=== PATIENT | female | born 1990 ===

== ENCOUNTER 2021-02-03 19:28 | Emergency (ER) | payer OTHER ==
[~2021-02-03] VITALS: Ht 167.6 cm; Wt 132.0 kg
[~2021-02-03 19:28] MED LIST: ALPR.25; DIVA250EC; Verotin-Gr Cap1 EACH PO
[2021-02-03] MEDS ORDERED: CYCL10 PO (21:27)
[2021-02-03] MEDS ORDERED: LIDO700A20 TOP (21:27)
== END 2021-02-03 21:46 | disposition home or self-care (01) ==
LOC: ER 19:28
DX: S46.912A Strain of unspecified muscle, fascia and tendon at shoulder and upper arm level, left arm, initial encounter (principal); X58.XXXA Exposure to other specified factors, initial encounter
CPT/HCPCS: 73030; 96372; 99283-25; A9270; J1885

== ENCOUNTER → 2021-02-14 | Outpatient (CLI) | payer OTHER ==
[~2021-02-14] MED LIST changes: +CYCL10 PO; +LIDO700A20 TOP
== END | disposition home or self-care (01) ==
LOC: LAB 11:56 → LAB SHORT 11:56
DX: Z32.01 Encounter for pregnancy test, result positive (principal)
CPT/HCPCS: 87086

== ENCOUNTER 2021-10-25 20:16 | Inpatient (IN) | payer OTHER ==
[~2021-10-25] VITALS: Ht 170.2 cm; Wt 126.8 kg
[2021-10-25 21:33] LABS: BASOPHILS ABSOLUTE AUTO 0.03 K/mm3 (0.00-0.23); BASOPHILS PERCENT AUTO 0 % (0-2); EOSINOPHILS ABSOLUTE AUTO 0.09 K/mm3 (0.00-0.68); EOSINOPHILS PERCENT AUTO 1 % (0-6); Hematocrit 35.4 % (33.0-51.0); Hemoglobin 12.5 g/dL (11.5-16.0); IMMATURE GRAN ABSOLUTE AUTO 0.05 K/mm3 (0.00-0.10); IMMATURE GRAN PERCENT AUTO 1 % (0-1); LYMPHOCYTES ABSOLUTE AUTO 2.33 K/mm3 (0.84-5.20); LYMPHOCYTES PERCENT AUTO 22 % (21-46); MONOCYTES ABSOLUTE AUTO 0.65 K/mm3 (0.16-1.47); MONOCYTES PERCENT AUTO 6 % (4-13); Mean Corpuscular HGB Conc 35.3 g/dL (31.5-36.5); Mean Corpuscular Volume 88 fL (80-100); Mean Platelet Volume 10.3 fL (9.1-12.4); NEUTROPHILS ABSOLUTE AUTO 7.57 K/mm3 (1.96-9.15); NEUTROPHILS PERCENT AUTO 71 % (41-73); Platelet Count 308 K/mm3 (150-400); RDW Coefficient Variation 13.5 % (11.7-14.2); RDW Standard Deviation 43.8 fL (35.1-46.3); Red Blood Cell Count 4.03 M/mm3 (3.80-5.20); White Blood Cell Count 10.72 K/mm3 (4.00-11.30)
[2021-10-25 22:18] LABS: Influenza A, PCR NEGATIVE (NEGATIVE); Influenza B, PCR NEGATIVE (NEGATIVE); Resp Syncytial Virus, PCR NEGATIVE (NEGATIVE); SARS-Cov-2 (COVID-19) PCR, MMC NEGATIVE (NEGATIVE)
[2021-10-26] MEDS ORDERED: IBUP800 PO (07:45)
[2021-10-27 05:57] LABS: Hematocrit 33.2 % (33.0-51.0); Hemoglobin 11.3 g/dL (11.5-16.0); Mean Corpuscular HGB 30.8 pg (26.0-34.0); Mean Corpuscular Volume 91 fL (80-100); Mean Platelet Volume 10.2 fL (9.1-12.4); Platelet Count 236 K/mm3 (150-400); Red Blood Cell Count 3.67 M/mm3 (3.80-5.20); White Blood Cell Count 9.07 K/mm3 (4.00-11.30)
--- NOTE | 2021-10-27 11:20 | NUR ---
PT GIVEN [place] DEPRESSION SCALE TO FILL OUT WITH A RESULT OF 14. PROMPTED, Cecilia RHODES CNM CALLED AND NOTIFIED. PT RESULTS DISCUSSED WITH PT AND PROVIDER. T/O FOR HOLD OF DISCHARGE UNTIL [facility] CAN COME ASSESS PT. FENG FROM [facility] CONTACTED REQUESTING REFERRAL. FENG TO COME DOWN WITHIN NEXT 30 MINUTES. DEPRESSION DISCHARGE EDUCATION GIVEN TO PT AND TALKED THROUGH. Cecilia RHODES CNM CONFIRMED PT HAS APPOINTMENT IN OFFICE IN THE NEXT 2 WEEKS.
--- NOTE | 2021-10-27 11:52 | NUR ---
FENG WITH SUPERVISOR FLESHING IN ROOM SPEAKING WITH PT.
--- NOTE | 2021-10-27 12:14 | NUR ---
DISCHARGE INSTRUCTIONS, WRITTEN AND VERBAL, GIVEN TO PT AND S.O. ANSWERED ALL QUESTIONS AND CONCERNS. FOLLOW UP APPOINTMENT SCHEDULED. TRIPOLER ASSESSMENT COMPLETE AND CLEARED FOR DISCHARGE. ALL PERSONAL BELONGINGS RETURNED. PT IS DISCHARGED, DRIVEN BY S.O.
== END 2021-10-27 12:25 | disposition home or self-care (01) | DRG 807 ==
LOC: OBS 20:16 → BC 20:28
PROVIDERS: ADMIT Nurse Practitioner Obstetrics & Gynecology
PROC: 10E0XZZ Delivery of Products of Conception, External Approach (ICD-10-PCS; principal; 2021-10-26)
PROC: 0KQM0ZZ Repair Perineum Muscle, Open Approach (ICD-10-PCS; 2021-10-26)
PROC: 10907ZC Drainage of Amniotic Fluid, Therapeutic from Products of Conception, Via Natural or Artificial Opening (ICD-10-PCS; 2021-10-26)
PROC: 3E033VJ Introduction of Other Hormone into Peripheral Vein, Percutaneous Approach (ICD-10-PCS; 2021-10-26)
DX: O62.3 Precipitate labor (principal); Z37.0 Single live birth; O99.824 Streptococcus B carrier state complicating childbirth; Z3A.40 40 weeks gestation of pregnancy; O77.0 Labor and delivery complicated by meconium in amniotic fluid; O70.1 Second degree perineal laceration during delivery; O99.214 Obesity complicating childbirth; Z98.890 Other specified postprocedural states; E66.9 Obesity, unspecified
CPT/HCPCS: 0241U; 36415; 85025; 85027; 86850; 86900; 86901; 88305; A9270; J0290; J2001; J2210; J2590; J3010; J7120

== ENCOUNTER 2021-12-04 16:50 | Emergency (ER) | payer OTHER ==
[~2021-12-04] VITALS: Ht 170.2 cm; Wt 126.1 kg
[~2021-12-04 16:50] MED LIST changes: +IBUP800 PO
[2021-12-04 17:14] LABS: BASOPHILS ABSOLUTE AUTO 0.03 K/mm3 (0.00-0.23); BASOPHILS PERCENT AUTO 0 % (0-2); EOSINOPHILS ABSOLUTE AUTO 0.15 K/mm3 (0.00-0.68); EOSINOPHILS PERCENT AUTO 2 % (0-6); Hematocrit 37.9 % (33.0-51.0); Hemoglobin 12.9 g/dL (11.5-16.0); IMMATURE GRAN ABSOLUTE AUTO 0.01 K/mm3 (0.00-0.10); IMMATURE GRAN PERCENT AUTO 0 % (0-1); LYMPHOCYTES ABSOLUTE AUTO 2.65 K/mm3 (0.84-5.20); LYMPHOCYTES PERCENT AUTO 40 % (21-46); MONOCYTES ABSOLUTE AUTO 0.43 K/mm3 (0.16-1.47); MONOCYTES PERCENT AUTO 6 % (4-13); Mean Corpuscular HGB 29.4 pg (26.0-34.0); Mean Corpuscular Volume 86 fL (80-100); Mean Platelet Volume 9.3 fL (9.1-12.4); NEUTROPHILS PERCENT AUTO 51 % (41-73); Platelet Count 390 K/mm3 (150-400); RDW Coefficient Variation 12.4 % (11.7-14.2); RDW Standard Deviation 39.4 fL (35.1-46.3); Red Blood Cell Count 4.39 M/mm3 (3.80-5.20); White Blood Cell Count 6.67 K/mm3 (4.00-11.30)
[2021-12-04 17:40] LABS: Albumin, Blood 3.4 g/dL (3.4-5.0); Albumin/Globulin Ratio 0.7 (0.8-1.8); Bilirubin, Total 0.2 mg/dL (0.1-1.0); Bun/Creatinine Ratio 21.5 (12.0-20.0); Creatinine, Blood 0.65 mg/dL (0.40-1.00); Globulin, Blood 4.6 g/dL (2.2-4.0); Potassium, Blood 4.1 mmol/L (3.5-5.5)
== END 2021-12-05 18:43 | disposition left against medical advice (07) ==
LOC: ER 16:50
PROVIDERS: Physician Assistant
DX: R07.9 Chest pain, unspecified (principal); Z53.21 Procedure and treatment not carried out due to patient leaving prior to being seen by health care provider
CPT/HCPCS: 36415; 71046; 80053; 85025; 85379